=== PATIENT | male | born 1985 | race Caucasian/White ===

== ENCOUNTER → 2023-12-03 | Outpatient (CLI) | payer OTHER | END | disposition home or self-care (01) | LOC: RADPV 10:20 | PROVIDERS: ATTEND Chiropractor | DX: I34.0 Nonrheumatic mitral (valve) insufficiency (principal); I49.9 Cardiac arrhythmia, unspecified; R00.9 Unspecified abnormalities of heart beat; Z87.898 Personal history of other specified conditions | CPT/HCPCS: 93005; 93306 ==